=== PATIENT | female | born 1965 | race Hispanic/Latino ===

== ENCOUNTER → 2018-07-15 | Outpatient (CLI) | payer MEDICARE ==
[~2018-07-15] VITALS: Ht 162.6 cm; Wt 82.6 kg
[~2018-07-15] MED LIST: ASPI-1181 PO; GABA-326 PO; GLIP10TA9 PO; LEVO25TA54 PO; LISI-613 PO; METF-446 PO; NITR0.4T50 SL; PREG150C PO; PREG200C PO; SODIUM CHLORIDE 0.9% 500ML 500 ML IV SCH
[2018-07-15 11:44] VITALS: BP 122/69
[2018-07-15 11:58] LABS: BASOPHILS % (AUTO) 1.1 % (0.0-5.0); EOSINOPHILS % (AUTO) 1.4 % (0.0-8.0); HEMATOCRIT 40.1 % (36-48); MEAN CORPUSCULAR HEMOGLOBIN 31.8 pg (27.0-33.0); MEAN CORPUSCULAR VOLUME 93.4 fL (79-99); MONOCYTES % (AUTO) 8.3 % (3.0-13.0); NEUTROPHILS % (AUTO) 61.2 % (40.0-77.0); PLATELET COUNT (AUTO) 188 K/uL (130-400); RED CELL DISTRIBUTION WIDTH 13.7 % (11.0-15.5); WHITE BLOOD COUNT (AUTO) 7.6 K/uL (4.8-10.8)
[2018-07-15 12:10] LABS: CREATININE 0.9 mg/dL (0.5-1.5); POTASSIUM 3.8 mmol/L (3.5-5.1)
[2018-07-15 12:13] LABS: INR 1.03 (0.85-1.15); PROTHROMBIN TIME 10.8 SEC (9.6-11.6)
[2018-07-15 12:36] LABS: APPEARANCE,URINE Clear (CLEAR); BILIRUBIN,URINE Negative (NEGATIVE); COLOR,URINE Dark Yellow (YELLOW); GLUCOSE, URINE (UA) Negative (NEGATIVE); KETONES,URINE Trace mg/dL (NEGATIVE); LEUKOCYTE ESTERASE ,URINE Moderate (NEGATIVE); NITRATE,URINE Negative (NEGATIVE); OCCULT BLOOD,URINE Negative (NEGATIVE); PH,URINE 6.5 (5.0-8.0); PROTEIN,URINE Negative (NEGATIVE)
[2018-07-15 12:40] LABS: BACTERIA,URINE Rare /HPF (None Seen); MUCUS,URINE Few LPF (None Seen); RBC,URINE 0-1 /HPF (0-1); SQUAMOUS EPITHELIAL CELL,UR Rare /HPF (0-2)
== END | disposition home or self-care (01) ==
LOC: EDSTATUS 10:00 → DAH 10:00 → EDSTATUS 10:00
PROVIDERS: ATTEND Internal Medicine Cardiovascular Disease
DX: Z01.818 Encounter for other preprocedural examination (principal); I20.0 Unstable angina; I10 Essential (primary) hypertension; E11.9 Type 2 diabetes mellitus without complications; E03.9 Hypothyroidism, unspecified; Z79.899 Other long term (current) drug therapy; Z90.710 Acquired absence of both cervix and uterus; Z90.89 Acquired absence of other organs; Z82.49 Family history of ischemic heart disease and other diseases of the circulatory system
CPT/HCPCS: 36415; 71045; 80048; 81001; 85025; 85610; 85730; 93005

== ENCOUNTER 2018-08-21 08:12 | Day surgery (SDC) | payer MEDICARE ==
[2018-08-20 11:15] VITALS: BP 105/66
[2018-08-20 11:17] LABS: POTASSIUM 3.9 mmol/L (3.5-5.1)
[2018-08-20 11:23] LABS: BASOPHILS % (AUTO) 1.1 % (0.0-5.0); EOSINOPHILS % (AUTO) 2.2 % (0.0-8.0); HEMATOCRIT 39.2 % (36-48); LYMPHOCYTES % (AUTO) 19.8 % (21.0-51.0); MEAN CORPUSCULAR HEMOGLOBIN 30.8 pg (27.0-33.0); MEAN CORPUSCULAR HGB CONC 32.9 g/dL (32.0-36.0); MEAN CORPUSCULAR VOLUME 93.8 fL (79-99); NEUTROPHILS % (AUTO) 64.9 % (40.0-77.0); NUCLEATED RED BLOOD CELLS 0.1 % (0.0-0.19); PLATELET COUNT (AUTO) 159 K/uL (130-400); RED BLOOD CELL COUNT(AUTO) 4.18 MIL/uL (4.00-5.50); RED CELL DISTRIBUTION WIDTH 13.6 % (11.0-15.5); WHITE BLOOD COUNT (AUTO) 4.2 K/uL (4.8-10.8)
[2018-08-20 11:24] LABS: APPEARANCE,URINE CLEAR (CLEAR); BILIRUBIN,URINE SMALL (NEGATIVE); COLOR,URINE YELLOW (YELLOW); GLUCOSE, URINE (UA) NEGATIVE (NEGATIVE); KETONES,URINE 5 mg/dL (NEGATIVE); LEUKOCYTE ESTERASE ,URINE TRACE (NEGATIVE); NITRATE,URINE NEGATIVE (NEGATIVE); OCCULT BLOOD,URINE NEGATIVE (NEGATIVE); PROTEIN,URINE TRACE (NEGATIVE)
[2018-08-20 11:44] LABS: INR 1.04 (0.85-1.15); PARTIAL THROMBOPLASTIN TIME 30.6 SEC (26.3-35.5); PROTHROMBIN TIME 10.9 SEC (9.6-11.6)
[2018-08-20 11:56] LABS: BACTERIA,URINE Rare /HPF (None Seen); MUCUS,URINE Few LPF (None Seen); RBC,URINE 0-1 /HPF (0-1); SQUAMOUS EPITHELIAL CELL,UR Rare /HPF (0-2)
[~2018-08-21] VITALS: Ht 162.6 cm; Wt 80.8 kg
[2018-08-21] VITALS (17 sets, daily range): BP systolic 110–145; BP diastolic 58–77
[~2018-08-21 08:12] MED LIST changes: -GABA-326 PO; -GLIP10TA9 PO; +HYDR-4064 PO; -LISI-613 PO; -METF-446 PO; -PREG150C PO; -SODIUM CHLORIDE 0.9% 500ML 500 ML IV SCH
[2018-08-21] MEDS ORDERED: SODIUM CHLORIDE 0.9% 1000ML 1,000 ML IV ONE (09:11)
[2018-08-21] MEDS ORDERED: IOHEXOL-350 50ML VIAL IV ONE (10:58)
[2018-08-21] MEDS ORDERED: FENTANYL CITRATE PF 50 MCG/1 ML 2ML VIAL ONE (10:58)
[2018-08-21] MEDS ORDERED: LIDOCAINE HCL 2% 20ML ONE (10:58)
[2018-08-21] MEDS ORDERED: NITROGLYCERIN 5 MG/ML 10 ML VIAL IV ONE (10:58)
[2018-08-21] MEDS ORDERED: IOHEXOL 350 MG/ML 100ML INFUS..BTL IV ONE (10:58)
[2018-08-21] MEDS ORDERED: MIDAZOLAM HCL 1 MG/ML 2ML VIAL ONE (10:58)
[2018-08-21] MEDS ORDERED: SODIUM CHLORIDE 0.9% 1000ML 1,000 ML IV SCH (11:38)
[2018-08-21] MEDS ORDERED: GLUCAGON 1MG KIT 1 MG ML IM PRN (11:45)
[2018-08-21] MEDS ORDERED: HYDRALAZINE HCL 20 MG/ML VIAL IV PRN (11:45)
[2018-08-21] MEDS ORDERED: DEXTROSE 50%-WATER 50 ML DISP.SYRIN IV PRN (11:45)
[2018-08-21] MEDS ORDERED: NITROGLYCERIN 0.4 MG SL TAB SL PRN (11:45)
== END 2018-08-21 17:00 | disposition home or self-care (01) ==
LOC: DAH 08:12
PROVIDERS: ATTEND Internal Medicine Cardiovascular Disease
DX: I20.0 Unstable angina (principal); Z82.49 Family history of ischemic heart disease and other diseases of the circulatory system; I10 Essential (primary) hypertension; E66.01 Morbid (severe) obesity due to excess calories; E11.42 Type 2 diabetes mellitus with diabetic polyneuropathy; E03.9 Hypothyroidism, unspecified; Z79.899 Other long term (current) drug therapy; Z68.30 Body mass index [BMI] 30.0-30.9, adult; Z98.890 Other specified postprocedural states; Z90.710 Acquired absence of both cervix and uterus; Z90.49 Acquired absence of other specified parts of digestive tract
CPT/HCPCS: 36415; 71045; 80048; 81001; 82948; 85025; 85610; 85730; 93005; 93458; A4606; C1894 ×2; J1644; J2250; J3010; J3490 ×2; J7030; Q9965; Q9967 ×2; 99156; 99157

== ENCOUNTER 2019-08-10 16:07 | Emergency (ER) | payer MEDICARE, OTHER ==
[2019-08-10] MEDS ORDERED: DEXAMETHASONE SOD PHOSPHATE 10MG/ML 1ML VIAL ONE (16:31)
[2019-08-10] MEDS ORDERED: KETOROLAC TROMETHAMINE 60 MG/2 ML VIAL ONE (16:31)
== END 2019-08-10 17:36 | disposition home or self-care (01) ==
LOC: EDH 16:07
DX: S39.012A Strain of muscle, fascia and tendon of lower back, initial encounter (principal); S46.811A Strain of other muscles, fascia and tendons at shoulder and upper arm level, right arm, initial encounter; E11.9 Type 2 diabetes mellitus without complications; Y03.8XXA Other assault by crashing of motor vehicle, initial encounter; Y93.89 Activity, other specified; Y92.89 Other specified places as the place of occurrence of the external cause; Y99.8 Other external cause status
CPT/HCPCS: 96372 ×2; 99284; J1100; J1885

== ENCOUNTER 2019-12-24 13:09 | Emergency (ER) | payer MEDICARE | END 2019-12-24 13:56 | disposition home or self-care (01) | LOC: EDH 13:09 | DX: M25.511 Pain in right shoulder (principal); E11.9 Type 2 diabetes mellitus without complications ==

== ENCOUNTER → 2019-12-24 | Outpatient (CLI) | payer MEDICARE | END | disposition home or self-care (01) | LOC: RAH 14:11 | PROVIDERS: ATTEND Family Medicine | DX: M25.511 Pain in right shoulder (principal) | CPT/HCPCS: 73030 ==

== ENCOUNTER → 2020-10-20 | Outpatient (CLI) | payer MEDICARE ==
[~2020-10-20] MED LIST changes: -ASPI-1181 PO; +ASPI-1443 PO
== END | disposition home or self-care (01) ==
LOC: RAH 10:17
PROVIDERS: ATTEND Family Medicine
DX: M79.89 Other specified soft tissue disorders (principal); R22.41 Localized swelling, mass and lump, right lower limb; M79.671 Pain in right foot
CPT/HCPCS: 70450; 73610; 93971

== ENCOUNTER → 2022-09-03 | Outpatient (CLI) | payer OTHER, MEDICARE ==
[~2022-09-03] MED LIST changes: +AMOX-426 PO; -ASPI-1443 PO; +BUTA-271 PO; +CYCL-309 PO; +DAPA10TA PO; +DULA0.75 SQ; +ESOM40CA PO; +FAMO-136 PO; +FLUT16H NASAL; +FURO20TA6 PO; +GABA-529 PO; -HYDR-4064 PO; +ICOS1CAP PO; +LEVO125T11 PO; -LEVO25TA54 PO; +LISI10TA24 PO; +MAGN400C PO; +METO10TA41 PO; +MONT-39 PO; +NAPR-1023 PO; -NITR0.4T50 SL; +ONDA-104 PO; +POLY17PO4 PO; +POTA-81 PO; +PRAS1TAB3 PO; -PREG200C PO; +ROSU10TA28 PO; +SILV20CR11 TP; +UBRO50TA PO
== END | disposition home or self-care (01) ==
LOC: RAH 11:07
PROVIDERS: ATTEND Family Medicine
DX: S80.02XA Contusion of left knee, initial encounter (principal); S83.282A Other tear of lateral meniscus, current injury, left knee, initial encounter; X58.XXXA Exposure to other specified factors, initial encounter; Y93.89 Activity, other specified; Y92.89 Other specified places as the place of occurrence of the external cause; Y99.8 Other external cause status
CPT/HCPCS: 73721

== ENCOUNTER → 2023-04-17 | Outpatient (CLI) | payer OTHER, MEDICARE | END | disposition home or self-care (01) | LOC: RAH 13:32 | PROVIDERS: ATTEND Family Medicine | DX: S80.02XA Contusion of left knee, initial encounter (principal); M17.12 Unilateral primary osteoarthritis, left knee; M25.562 Pain in left knee; M25.462 Effusion, left knee; X58.XXXA Exposure to other specified factors, initial encounter; Y93.89 Activity, other specified; Y92.89 Other specified places as the place of occurrence of the external cause; Y99.8 Other external cause status | CPT/HCPCS: 73721 ==

== ENCOUNTER → 2023-09-15 | Outpatient (CLI) | payer OTHER, MEDICARE | END | disposition home or self-care (01) | LOC: RAH 13:20 | PROVIDERS: ATTEND Family Medicine | DX: Z12.31 Encounter for screening mammogram for malignant neoplasm of breast (principal) | CPT/HCPCS: 77067 ==